=== PATIENT | male | born 1970 | race Caucasian/White ===

== ENCOUNTER 2018-05-24 19:34 | Observation (INO) | payer BC, SELFPAY ==
[2018-05-24 19:35] VITALS: BP 137/84; PULSE 83; RESP 17; TEMP 36.3; O2SAT 97; BMI 32.3
--- NOTE | 2018-05-24 19:40 | EKG12_ITS ---
Test Reason : CP Blood Pressure : / mmHG Vent. Rate : 078 BPM Atrial Rate : 078 BPM P-R Int : 200 ms QRS Dur : 078 ms QT Int : 372 ms P-R-T Axes : 047 050 029 degrees QTc Int : 424 ms Normal sinus rhythm Normal ECG Confirmed by STAN FREGOSO, ELI ([id number]), editor school photograph FEI ANGEL ([id number]) on 05/29/2018 2:52:35 PM Referred By: EVELIA Confirmed By:ELI PIERCE MD
--- NOTE | 2018-05-24 19:40 | RAD_ITS ---
STUDY: X-RAY CHEST REASON FOR EXAM: Male, 47 years old. Chest pain. TECHNIQUE: Single AP portable view of the chest. COMPARISON: None. FINDINGS: The lungs are clear and expanded. There is no demonstrated pleural abnormality. Normal size heart. Normal mediastinum and godwin. Normal visualized pulmonary arteries. Normal visualized aortic arch and descending thoracic aorta. The thoracic spine is obscured by the mediastinum. Normal visualized ribs, clavicles, and shoulders. There is no demonstrated abnormality of the visualized soft tissue structures of the upper abdomen. RAD/Chest 1 View (Portable) IMPRESSION: No acute cardiopulmonary disease. Electronically Signed: Mo Mancilla DO at 20:01 EDT Tel [phone], Service support ,
--- NOTE | 2018-05-24 19:44 | NURSING ---
NO OLD EKG
[2018-05-24 19:53] VITALS: PULSE 89; RESP 20; O2SAT 96
[2018-05-24 19:53] LABS: Absolute Lymphocyte Count 2.17 X10^3/ul (0.83-4.51); Absolute Neutrophil Count 6.6 X10^3/uL (2.0-7.7); Basophil# 0.02 X10^3/uL; Basophil% 0.2 % (0-1); Eosinophil# 0.07 X10^3/uL; Eosinophils% 0.7 % (0-5); Hematocrit 42.7 % (40-54); Hemoglobin 14.5 g/dl (13.0-16.5); Lymphocyte # 2.17 X10^3/ul (4.0); Lymphocyte % 22.2 % (19-41); Mean Corpuscular Hgb 33.2 pg (27.0-32.0); Mean Corpuscular Volume 97.7 fL (80-94); Mean Platelet Vol. 9.3 fl (6.2-12.0); Monocyte# 0.96 X10^3/uL; Monocyte% 9.8 % (0-10); Neutrophil # 6.55 X10^3/uL (2.7-7.7); Platelet Count 200 K/mm3 (150-450); RBC Distribution Width CV 12.7 % (11.6-14.6); RBC Distribution Width SD 45.6 fl (35.1-43.9); Red Blood Count 4.37 M/mm3 (4.6-6.2); White Blood Count 9.8 K/mm3 (4.4-11.0)
[2018-05-24 19:58] LABS: POSITIVE COUNT NO; POSITIVE DIFFERENTIAL NO; POSITIVE MORPHOLOGY NO
--- NOTE | 2018-05-24 19:59 | ED.VISSUMM ---
- ER Visit Summary Date of Service: 05/24/18 Chief Complaint: [] Chest pressure diaphoresis left arm pain since 10 AM today History of Present Illness: The patient is a 47 M [] is really in his past medical history reports that today began having chest pressure diaphoresis and left arm discomfort symptoms persisted he spoke with his and he came into the emergency department he has no history of GA PE or DVT he is generally healthy on no meds no past history no family history of CAD GA PE or DVT resting comfortably now asymptomatic Physical Examination: [] Rest unremarkable lungs are clear heart tones are normal abdomen soft full range of motion of the upper lower extremities pulses are symmetric his left arm exams unremarkable Test Results: [] Emergency Department Course and Treatment: [] EKG shows a sinus rhythm no injury pattern The patient's EKG labs x-rays other studies are all generally unremarkable please review the do those. Given his age the chest pain diaphoresis the left arm discomfort I have asked hospitalist to admit him for further management and further evaluation and they agree patient also agrees Treatment Plan: [] Disposition: [] Stable admit Impression: [] Chest pain with left arm discomfort evaluate for angina new onset This note was generated with [employer] dictation software. It may contain incorrect words, spelling, and punctuation that were not noted in review of the chart prior to signing ED Disposition - Plan for ED Patient: Chief Complaint: Chest Pain
[2018-05-24 20:08] LABS: Anion Gap 9 (5-15); BUN 17 mg/dL (7-18); BUN/Creat Ratio 15.6 RATIO (10-20); Calcium,Total 8.7 mg/dL (8.5-10.1); Chloride 106 mmol/L (98-107); Creatinine, Serum 1.09 mg/dL (0.70-1.30); EST Glomerular Filtration Rate 77 mL/min (>60); Est Glom Filt Rate - Afr Amer 93 mL/min (>60); Estimated Creatinine Clearance 87.44 ml/min; Glucose 90 mg/dL (74-106); Potassium 4.2 mmol/L (3.5-5.1); Sodium Level 140 mmol/L (136-145)
[2018-05-24] MEDS: Aspirin 325 MG Tablet PO (20:10)
[2018-05-24 21:59] VITALS: BP 141/80; PULSE 79; RESP 15; O2SAT 96
--- NOTE | 2018-05-24 22:29 | NURSING ---
Called ED business development analyst, Ryan at this time to confirm Pt okay to come to PCU.
--- NOTE | 2018-05-24 22:36 | HP.PCM_ITS ---
Problem List (1) Chest pain Status: Acute History of Present Illness Date of Admission: 05/24/18 Chief Complaint: chest pain ?4-5 days. The patient is a 47 year old previously healthy male who presented because of 4- 5 days of chest pain. His chest pain radiates to the back of his left arm and onto his left armpit. He reports that he chest pain went away and came back a day before his presentation. He describes his chest pain as a feeling of pressure. He reports diaphoresis but he is unsure whether it is the whether that causes him his diaphoresis or it is his chest pain. However the ED doctor found him diaphoretic. He reports that he has recently been taking care of twins and his who is using crutches so he may be exerting himself. 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 He did vomit about a week ago. She smokes about 2 cigarettes in a year. Past Medical History Allergies No Known Allergies Allergy (Verified 05/24/18 19:37) Home Medications: Ambulatory Orders Medication Instructions Recorded Venlafaxine HCl [Effexor] 75 mg PO DAILY 05/24/18 Lives: Spouse/ Significant Other Smoking Status: Never smoker Alcohol: None Drugs: None Review of Systems Constitutional: Denies: Anorexia, Malaise Eyes: Denies: Blurred vision, Pain HEENT: Denies: Head Aches, Sinus Congestion, Sinus Drainage Cardiovascular: Reports: Chest Pain Respiratory: Denies: Cough, Shortness of breath at rest, Sputum production Gastrointestinal: Denies: Abdominal Pain, Nausea, Vomiting Genitourinary: Denies: Dysuria Musculoskeletal: Reports: Arm Pain - Left arm pain and left armpit pain. Skin: Denies: Rash, Wounds Neurological: Denies: Numbness, Tingling, Focal weakness Psychiatric: Denies: Anxiety, Depression, Homicidal Ideations, Suicidal Ideations Hematologic/ Lymphatic: Denies: Easy Bruising, Easy Bleeding VTE Information - Inpt Only VTE Present on Admission: No VTE Mechan Device Prophylaxis: None VTE Pharm Prophylaxis ordered?: No Reason prophylaxis not ordered:: Medical Contraindication Patient Problems: Active and Suspected Problems Chest pain (Acute) - Physical Exam General: Alert, Oriented x3, Cooperative HEENT: Atraumatic, PERRLA, EOMI, Normocephalic Neck: Supple, No JVD, Negative Carotid Bruits Lungs: Clear to auscultation, Normal air movement Cardiovascular: Regular rate, No murmurs Abdomen: Bowel Sounds Present, Soft, Non Tender Extremities: No edema, Capillary Refill Less than 3 Seconds Skin: No rashes, No breakdown Musculoskeletal: No Tenderness to Palpation of Joints or Extremities Lymphatic: No Cervical, Supraclavicular, or Inguinal Adenopathy Neurological: Cranial nerves II-XII grossly intact Vital Signs Temp Pulse Resp BP Pulse Ox 97.3 F L 79 15 141/80 H 96 05/24/18 19:35 05/24/18 21:59 05/24/18 21:59 05/24/18 21:59 05/24/18 21:59 Oxygen Delivery Method Room Air Weight: 102.3 kg Body Mass Index (BMI) 32.3 Laboratory Tests Past 24 Hrs 05/24/18 05/24/18 19:45 19:45 WBC 9.8 RBC 4.37 L Hgb 14.5 Hct 42.7 MCV 97.7 H MCH 33.2 H MCHC 34.0 RDW 12.7 RDW Differential 45.6 H Plt Count 200 MPV 9.3 Immature Gran % (Auto) 0.100 Neut % (Auto) 67.0 Lymph % (Auto) 22.2 Curry % (Auto) 9.8 Eos % (Auto) 0.7 Baso % (Auto) 0.2 Absolute Neuts (auto) 6.6 Absolute Lymphs (auto) 2.17 Total Counted Not Reportable Sodium 140 Potassium 4.2 Chloride 106 Carbon Dioxide 25.0 Anion Gap 9 BUN 17 Creatinine 1.09 Estim Creat Clear Calc 87.44 Est GFR (MDRD) Af Amer 93 Est GFR (MDRD) Non-Af 77 BUN/Creatinine Ratio 15.6 Glucose 90 Calcium 8.7 Troponin I 0.024 Assessment/Plan All Active Problems Chest pain (Acute) This is a 47-year-old male with unremarkable medical history who presents with chest pain ongoing for about 4-5 days. Chest pain Differential diagnosis for his chest pain includes cardiac origin of chest pain , musculoskeletal pain or GERD. Status post aspirin 325 mg at emergency department Aspirin 81 mg continued Lipitor ordered Fasting lipids ordered Serial troponin Stress test in a.m. Will keep n.p.o. DVT prophylaxis Subcutaneous heparin. Continue home Effexor. This note was prepared with speech recognition software and may be prone to errors in sec reporting consultant.
[2018-05-24 23:03] VITALS: BP 150/94; PULSE 69; RESP 19; O2SAT 95
--- NOTE | 2018-05-24 23:33 | EKG12_ITS ---
Test Reason : CP ADMIT Blood Pressure : / mmHG Vent. Rate : 071 BPM Atrial Rate : 071 BPM P-R Int : 208 ms QRS Dur : 090 ms QT Int : 392 ms P-R-T Axes : 041 046 017 degrees QTc Int : 425 ms Normal sinus rhythm with sinus arrhythmia Poor R wave progression Confirmed by STAN FREGOSO, ELI ([id number]), scientific publications editor FEI ANGEL ([id number]) on 05/29/2018 3:28:56 PM Referred By: DR DIAZ Confirmed By:ELI PIERCE MD
[2018-05-24 23:40] VITALS: BMI 32.1; BMI 32.2
[2018-05-24 23:45] VITALS: BP 133/90; PULSE 75; RESP 18; TEMP 36.8; O2SAT 95
[2018-05-24 23:57] VITALS: PULSE 66
[2018-05-25] VITALS (7 sets, daily range): BP systolic 129–149; BP diastolic 81–95; PULSE 58–76; RESP 18; TEMP 36.6–37; O2SAT 95–98
[2018-05-25 05:34] LABS: Absolute Lymphocyte Count 2.61 X10^3/ul (0.83-4.51); Basophil# 0.02 X10^3/uL; Basophil% 0.2 % (0-1); Eosinophil# 0.11 X10^3/uL; Eosinophils% 1.3 % (0-5); Hematocrit 42.6 % (40-54); Hemoglobin 14.3 g/dl (13.0-16.5); Lymphocyte # 2.61 X10^3/ul (4.0); Lymphocyte % 30.3 % (19-41); Mean Corp Hgb Conc 33.6 g/gl (32-36); Mean Corpuscular Hgb 33.3 pg (27.0-32.0); Mean Corpuscular Volume 99.3 fL (80-94); Mean Platelet Vol. 9.4 fl (6.2-12.0); Monocyte# 0.87 X10^3/uL; Monocyte% 10.1 % (0-10); Neutrophil # 4.99 X10^3/uL (2.7-7.7); Platelet Count 194 K/mm3 (150-450); RBC Distribution Width CV 12.7 % (11.6-14.6); RBC Distribution Width SD 45.4 fl (35.1-43.9); Red Blood Count 4.29 M/mm3 (4.6-6.2); White Blood Count 8.6 K/mm3 (4.4-11.0)
[2018-05-25] MEDS: Aspirin E.C. 81 MG Tablet PO (05:35)
[2018-05-25 05:54] LABS: International Normalized Ratio 0.9; Prothrombin Time (Protime)PT. 12.5 SECONDS (11.7-14.9)
[2018-05-25 05:55] LABS: Partial Thromboplast Time 25.8 Seconds (24.1-36.2)
[2018-05-25 06:09] LABS: Anion Gap 6 (5-15); BUN 17 mg/dL (7-18); BUN/Creat Ratio 17.5 RATIO (10-20); Calcium,Total 9.1 mg/dL (8.5-10.1); Chloride 106 mmol/L (98-107); Cholesterol 211 mg/dL (200); Creatinine, Serum 0.97 mg/dL (0.70-1.30); EST Glomerular Filtration Rate 88 mL/min (>60); Est Glom Filt Rate - Afr Amer 107 mL/min (>60); Estimated Creatinine Clearance 98.25 ml/min; Glucose 95 mg/dL (74-106); High Density Lipoprotein 61 mg/dL; Potassium 4.2 mmol/L (3.5-5.1); Sodium Level 141 mmol/L (136-145); Triglycerides 110 mg/dL; Very Low Density Lipoprotein 22 mg/dL (5-40)
[2018-05-25 06:10] LABS: POSITIVE COUNT NO; POSITIVE DIFFERENTIAL NO; POSITIVE MORPHOLOGY NO
[2018-05-25] MEDS: Venlafaxine XR 75 MG Capsule PO (09:06)
--- NOTE | 2018-05-25 09:51 | STRESSREP ---
Stress Test Report Date: 05/24/2018 Procedure: Exercise tolerance test/imaging study Indications: Chest pain Consent: Per the patient Procedure: The patient exercised on a Garrett protocol for 13 minutes completing Stage IV and 1 minute of Stage V achieving a peak heart rate of 166 bpm (95 % predicted maximal heart rate) with a peak blood pressure 172/84 mmHg and a peak MET capacity of 15 METs. The baseline ECG demonstrated normal sinus rhythm. The peak exercise ECG demonstrated no obvious ECG changes. There were no cardiac dysrhythmias pretest, during exercise, or recovery. The functional capacity was considered excellent. There was no complaint of chest discomfort during exercise or recovery. The examination was discontinued secondary to dyspnea. Impression: 1. Technically adequate (percent predicted maximal heart rate greater than 85%) exercise tolerance test 2. Peak exercise ECG with no obvious ECG changes 3. There were no cardiac dysrhythmias pretest, during exercise, or recovery. 4. Nuclear images pending Myocardial perfusion imaging study: Technique: The patient was injected with 14.5 mCi of technetium 99m Cardiolite and subsequently rest SPECT Cardiolite nuclear imaging was obtained in the horizontal long, vertical long, and short axis views. The patient exercised on a Garrett protocol for 13 minutes completing Stage IV and 1 minute of Stage V achieving a peak heart rate of 166 bpm (95 % predicted maximal heart rate) with a peak blood pressure 172/84 mmHg and a peak MET capacity of 15 METs. The patient was injected with 44.1 mCi of technetium 99m Cardiolite and subsequently stress SPECT Cardiolite nuclear imaging was obtained in the horizontal long, vertical long, and short axis views. A gated Cardiolite study at peak stress was obtained. Interpretation: Rest and stress SPECT Cardiolite nuclear imaging status post realignment and normalization demonstrates the appearance of relative uniform tracer uptake and myocardial perfusion appearing within normal limits. There is end systolic thickening and brightening. The gated Cardiolite study demonstrates myocardial thickening and inward wall motion. The reported LVEF is 67 %. Impression: 1. Rest and stress SPECT Cardiolite nuclear imaging demonstrate relative uniform tracer uptake and myocardial perfusion appearing within normal limits. 2. The gated Cardiolite study reports an LVEF of 67 %. This note was generated with [employer] software. It may contain incorrect words, spelling, and punctuation that were not noted in checking the note before signing.
--- NOTE | 2018-05-25 09:59 | STRESSREP_ITS ---
Stress Test Report Date: 05/24/2018 Procedure: Exercise tolerance test/imaging study Indications: Chest pain Consent: Per the patient Procedure: The patient exercised on a Garrett protocol for 13 minutes completing Stage IV and 1 minute of Stage V achieving a peak heart rate of 166 bpm (95 % predicted maximal heart rate) with a peak blood pressure 172/84 mmHg and a peak MET capacity of 15 METs. The baseline ECG demonstrated normal sinus rhythm. The peak exercise ECG demonstrated no obvious ECG changes. There were no cardiac dysrhythmias pretest, during exercise, or recovery. The functional capacity was considered excellent. There was no complaint of chest discomfort during exercise or recovery. The examination was discontinued secondary to dyspnea. Impression: 1. Technically adequate (percent predicted maximal heart rate greater than 85% ) exercise tolerance test 2. Peak exercise ECG with no obvious ECG changes 3. There were no cardiac dysrhythmias pretest, during exercise, or recovery. 4. Nuclear images pending Myocardial perfusion imaging study: Technique: The patient was injected with 14.5 mCi of technetium 99m Cardiolite and subsequently rest SPECT Cardiolite nuclear imaging was obtained in the horizontal long, vertical long, and short axis views. The patient exercised on a Garrett protocol for 13 minutes completing Stage IV and 1 minute of Stage V achieving a peak heart rate of 166 bpm (95 % predicted maximal heart rate) with a peak blood pressure 172/84 mmHg and a peak MET capacity of 15 METs. The patient was injected with 44.1 mCi of technetium 99m Cardiolite and subsequently stress SPECT Cardiolite nuclear imaging was obtained in the horizontal long, vertical long, and short axis views. A gated Cardiolite study at peak stress was obtained. Interpretation: Rest and stress SPECT Cardiolite nuclear imaging status post realignment and normalization demonstrates the appearance of relative uniform tracer uptake and myocardial perfusion appearing within normal limits. There is end systolic thickening and brightening. The gated Cardiolite study demonstrates myocardial thickening and inward wall motion. The reported LVEF is 67 %. Impression: 1. Rest and stress SPECT Cardiolite nuclear imaging demonstrate relative uniform tracer uptake and myocardial perfusion appearing within normal limits. 2. The gated Cardiolite study reports an LVEF of 67 %. This note was generated with [employer] software. It may contain incorrect words, spelling, and punctuation that were not noted in checking the note before signing.
--- NOTE | 2018-05-25 10:58 | DCINST_ITS ---
- Discharge Diagnoses Current Active Problems: Current Active and Chronic Problems Chest pain (Acute) You will use the following diet at home:: No restrictions Your food should be the consistency of: Regular Your liquids should be the consistency of: Regular/Thin Discharge Activity: Return to Normal Activity Weight Bearing Status: Full weight bearing Allergies/Adverse Reactions: Allergies No Known Allergies Allergy (Verified 05/24/18 19:37) Medications to take at Discharge Venlafaxine HCl [Effexor] 75 mg PO DAILY 05/24/18 Primary Care Physician: Daren Hi MD [Primary Care Provider] - Please follow up with your Primary Care Physician in: today Test Results: Test results from this visit will be discussed in further detail at your follow- up appointment, if applicable.
--- NOTE | 2018-05-28 09:59 | DS.PCM_ITS ---
Discharge Date and Diagnosis Date of Admission: 05/24/18 Date of Discharge: 05/25/18 - Primary Discharge Diagnosis #1 musculoskeletal chest pain Hospital Course and Treatment Operations: None Procedures: Nuclear stress test Summary of Care Provided: The patient is a 47 year old M room at [facility] with chief complaint of chest pain 4-5 days duration. Workup in the emergency room showed his troponins to be unremarkable, EKG showed normal sinus rhythm without evidence of ischemic changes, patient's chest x-ray was unremarkable. Patient was placed in observation status on PCU, enzymes were cycled and they remain normal, patient underwent a nuclear stress test which was negative for reversible ischemia. On 05/25/18, patient was seen and examined and felt to be in stable condition for discharge home Discharge Activity: Return to Normal Activity Weight Bearing Status: Full weight bearing Home Medications: Medications to take at Discharge Venlafaxine HCl [Effexor] 75 mg PO DAILY 05/24/18 Primary Care Physician: Daren Hi MD [Primary Care Provider] - Please follow up with your Primary Care Physician in: today Please Follow Up With: nathan Disposition: Home Minutes spent on discharge:: 25 Patient Condition:: Stable Medical Necessity - Tobacco Use Smoking Status: Never smoker Meaningful Use Info Meaningful Use Diagnoses (Choose all that apply): None applicable Code Visit OBSV E&M: 48506 Observation care discharge
== END 2018-05-25 10:58 | disposition home or self-care (01) ==
LOC: ED 20:04 → PCU 23:07
PROVIDERS: Admitting Provider Hospitalist; Emergency Provider Emergency Medicine; Family Provider Family Medicine; PCP Family Medicine; Visit Provider Internal Medicine
DX: R07.89 Other chest pain (principal); M79.602 Pain in left arm; F17.210 Nicotine dependence, cigarettes, uncomplicated
CPT/HCPCS: 36415; 71045; 78452; 80048; 80061; 84484; 85025; 85610; 85730; 93005; 93017; 99218; 99284; A9500; A4216; G0378

== ENCOUNTER → 2020-09-04 10:20 | Outpatient (CLI) | payer BC, SELFPAY | PROVIDERS: PCP Family Medicine; Referring Provider Family Medicine; Visit Provider Family Medicine | DX: Z01.812 Encounter for preprocedural laboratory examination (principal); Z20.828 Contact with and (suspected) exposure to other viral communicable diseases | CPT/HCPCS: 87635; C9803; U0003 ==

== ENCOUNTER → 2022-07-22 | Outpatient (CLI) | payer BC, SELFPAY ==
[2022-07-22 12:44] LABS: ALB/GLOB Ratio 1.1 RATIO (0.9-2.4); AST(SGOT) 47 U/L (15-37); Alanine Aminotransfer ALT/SGPT 45 U/L (16-61); Albumin, Serum 3.6 g/dL (3.2-5.0); Alkaline Phosphatase 60 U/L (45-117); Anion Gap 6 (5-15); BUN 14 mg/dL (7-18); BUN/Creat Ratio 12.2 RATIO (10-20); Calcium,Total 9.1 mg/dL (8.5-10.1); Chloride 109 mmol/L (98-107); Cholesterol 151 mg/dL (200); Creatinine, Serum 1.15 mg/dL (0.70-1.30); EST Glomerular Filtration Rate 71 mL/min (>60); Est Glom Filt Rate - Afr Amer 86 mL/min (>60); Globulin 3.4 g/dL (2.2-4.2); Glucose 101 mg/dL (74-106); High Density Lipoprotein 49 mg/dL; PSA,Total - Annual Screen 1.46 ng/mL (0.00-4.00); Potassium 4.3 mmol/L (3.5-5.1); Sodium Level 143 mmol/L (136-145); Triglycerides 105 mg/dL; Very Low Density Lipoprotein 21 mg/dL (5-40)
[2022-07-22 13:03] LABS: Microalbumin,Random Urine 8.1 mg/L (NO RANGE EST.)
[2022-08-03 00:07] LABS: Testosterone, % Free 4.09 % (1.50-4.20); Testosterone, Free 38.24 ng/dL (5.00-21.00)
[2022-08-03 16:38] LABS: Testosterone, Total 935 ng/dL (264-916)
== END | disposition home or self-care (01) ==
LOC: BIMLAB 08:49
PROVIDERS: PCP Nurse Practitioner Family; Referring Provider Nurse Practitioner Family; Visit Provider Nurse Practitioner Family
DX: E78.5 Hyperlipidemia, unspecified (principal); I10 Essential (primary) hypertension; F41.1 Generalized anxiety disorder; E29.1 Testicular hypofunction; Z12.5 Encounter for screening for malignant neoplasm of prostate; B00.9 Herpesviral infection, unspecified
CPT/HCPCS: 36415; 80053; 80061; 82043; 84153; 84270; 84402; 84403; G0103

== ENCOUNTER 2022-11-25 07:23 | Day surgery (SDC) | payer BC, SELFPAY ==
[2022-11-25 07:48] VITALS: BP 127/87; PULSE 72; RESP 18; TEMP 37; O2SAT 100; BMI 34.1
[2022-11-25] MEDS: Lactated Ringers 1,000 ML 15 ML IV (07:48)
--- NOTE | 2022-11-25 08:25 | HP.PCM_ITS ---
HPI - General HPI Narrative MARY CARMEN TAYLOR, is a 52 M who presents for screening colonoscopy. Patient has never had a scope before. Patient denies any abdominal pain or blood in the stool. He has no family history of colon cancer. No blood thinners. PFSH Medical History Acute pharyngitis, unspecified Alcohol use Cardiology follow-up encounter CPAP (continuous positive airway pressure) dependence Dilated aortic root CATIE (generalized anxiety disorder) High cholesterol History of echocardiogram History of stress test History of varicocele HTN (hypertension) Non-smoker Home Medications atorvastatin 20 mg tablet 20 mg PO DAILY 09/07/22 [History Last Taken Unknown] metoprolol tartrate 25 mg tablet 25 mg PO DAILY 09/07/22 [History Last Taken 11/24/22 20:00] testosterone cypionate 200 mg/mL intramuscular oil 200 mg IM Q4W 09/07/22 [ History Last Taken Unknown] venlafaxine 150 mg capsule,extended release 24 hr 150 mg PO DAILY 09/07/22 [History Last Taken 11/25/22] Allergy/AdvReac Type Severity Reaction Status Date / Time No Known Allergies Allergy Verified 11/25/22 07:47 Surgical History History of rhinoplasty History of shoulder surgery History of tonsillectomy and adenoidectomy Social History Smoking Status: Never smoker Past Medical/Surgical History Planned Operation Planned Operative Procedure/s: CSCOPE OA Previous Hospitalizations/Surgeries HX Hospitalizations: No Any Problems With Anesthesia: No You/Your Family Experience Fever (Hyperthermia) With Anes: No Cholinesterase deficiency: No Cardiovascular Hx Chest Pain within Last 2 months: No Hx of Irregular Heartbeat and/or Afib: No Hx Heart Attack: No Hx Hypertension: Yes (CONTROLLED WITH MED) Hx Cardiac Surgery/Stents/Etc.: No Hx Pain in Legs when Walking/Leg Cramps: No Respiratory Hx Chronic Obstructive Pulmonary Disease (COPD): No Hx Emphysema: No Hx Sleep Apnea: Yes CPAP: Yes BIPAP: No Hx Respiratory Tract Infection/Cold (presently): No Result (for STOP score): Positive Hx Smoking: No Smoking Status: Never smoker Gastrointestinal Hx Gastrointestinal Bleed: No Hx Ulcer: No Hx Unplanned Weight Loss of 20#: No Neurological Hx Seizures: No Hx Multiple Sclerosis: No Hx Parkinson's Disease: No Does patient have nerve stimulator: No Blood Disorder Hx Hepatitis: No Hx Cirrhosis: No Hx Anemia: No Hx Blood Disorders: No Reproduction : No Genitourinary Hx Renal Disease: No Hx Dialysis: No Musculoskeletal Hx Arthritis: Yes Hx Rheumatoid Arthritis: No Endocrine Hx Diabetes: No Thyroid Disease: No Psycho/Social Hx Substance Use: No Hx Alcohol Use: Yes (social) Hx Anxiety: Yes Hx Depression: No Hx Dementia: No Miscellaneous Hx Cancer: No Recent Exposure to Contagious Disease: No Allergies No Known Allergies Allergy (Verified 11/25/22 07:47) Discharge Is Pt Admitted From a [facility], or a [facility]: No After D/C, Where Do you Plan to Go: Return Home Vital Signs Vital Signs Vital Signs: 11/25/22 07:48 11/25/22 07:48 Temperature 98.6 F Temperature Source Temporal Pulse Rate 72 Respiratory Rate 18 Respiratory Pattern Normal Blood Pressure 127/87 H Blood Pressure Mean 100 Blood Pressure Source Monitor Blood Pressure Position Semi-Fowlers Blood Pressure Location Right Arm Pulse Ox 100 Oxygen Delivery Method Room Air Weight Weight: 238 lb Body Mass Index (BMI) 34.1 Physical Exam Const alert and oriented x3 HEENT normocephalic Eyes PERRL Resp normal respiratory effort and normal air movement Cardio regular rate and regular rhythm GI soft to palpation, non-tender and non-distended Extremity normal to inspection Assessment & Plan Assessment/Plan (1) Encounter for screening for malignant neoplasm of colon: PLAN: I explained endoscopy in detail to the patient. I explained the risks including but not limited to stroke or heart attack with anesthesia, perforation of the GI tract, bleeding, infection. I explained that any of these could necessitate further emergency surgery. The patient understands and all questions were answered sufficiently. The patient wishes to proceed with procedure. Saman Frost MD Pager: [facility] [address] [place] [address], [address] [place] [address] Office: Surgery Risks - Colonoscopy Risks Include but are not Limited To: Risks include but are not limited to: Bleeding, perforation requiring further surgery, inability to complete colonoscopy requiring barium enema.
[2022-11-25 08:47] VITALS: BP 127/87; BP 128/80; PULSE 74; RESP 14; TEMP 36.8; O2SAT 94
--- NOTE | 2022-11-25 08:47 | OP.COLON_ITS ---
Patient Name: John Clark Procedure Date: 11/25/2022 8:17 AM Date of : 1970 Age: 52 Procedure: Colonoscopy Indications: Screening for colorectal malignant neoplasm Providers: Saman Frost MD Medicines: Monitored Anesthesia Care Patient Profile: This is a 52 year old male. Refer to note in patient chart for documentation of history and physical. Last Colonoscopy: none. The patient's first colonoscopy is today. Complications: No immediate complications. Procedure: Pre-Anesthesia Assessment: - Prior to the procedure, a History and Physical was performed, and patient medications and allergies were reviewed. The patient's tolerance of previous anesthesia was also reviewed. The risks and benefits of the procedure and the sedation options and risks were discussed with the patient. All questions were answered, and informed consent was obtained. Prior Anticoagulants: The patient has taken no previous anticoagulant or antiplatelet agents. After reviewing the risks and benefits, the patient was deemed in satisfactory condition to undergo the procedure. After I obtained informed consent, the scope was passed under direct vision. Throughout the procedure, the patient's blood pressure, pulse, and oxygen saturations were monitored continuously. The colonoscope was introduced through the anus and advanced to the cecum, identified by appendiceal orifice and ileocecal valve. The colonoscopy was performed without difficulty. The patient tolerated the procedure well. The quality of the bowel preparation was good. Scope In: 8:32:45 AM Scope Withdrawal Time 0 hours 6 minutes 50 seconds Scope Out: 8:44:22 AM Total Procedure Duration Time 0 hours 11 minutes 37 seconds Findings: The entire examined colon appeared normal on direct and retroflexion views. Impression: - The entire examined colon is normal on direct and retroflexion views. - No specimens collected. Recommendation: - Discharge patient to home. - Resume previous diet. - Continue present medications. - Repeat colonoscopy in 10 years for screening purposes. Procedure Code(s): --- Professional --- 52902, Colonoscopy, flexible; diagnostic, including collection of specimen(s) by brushing or washing, when performed (separate procedure) Diagnosis Code(s): --- Professional --- Z12.11, Encounter for screening for malignant neoplasm of colon CPT copyright 2017 [employer]. All rights reserved. The codes documented in this report are preliminary and upon taker off drying kiln review may be revised to meet current compliance requirements. Saman Frost MD 11/25/2022 8:46:19 AM This report has been signed electronically. Number of Addenda: 0 Note Initiated On: 11/25/2022 8:17 AM
--- NOTE | 2022-11-25 08:47 | OP.CCLET_ITS ---
11/25/2022 Aguilar Valero Re : Colonoscopy procedure for John Clark Dear Marylu This procedure was performed on Friday, November 25, 2022. My impressions and recommendations are as follows: Impressions : - The entire examined colon is normal on direct and retroflexion views. - No specimens collected. Recommendations : - Discharge patient to home. - Resume previous diet. - Continue present medications. - Repeat colonoscopy in 10 years for screening purposes. My findings are described in the full procedure note, which is enclosed. If I can be of further assistance, please feel free to contact me at Doctor phone number(s): , Work: . Sincerely, Saman Frost MD 11/25/2022 8:46:19 AM This report has been signed electronically.
[2022-11-25 08:50] VITALS: BP 111/88; BP 127/87; PULSE 77; RESP 16; O2SAT 92
[2022-11-25 08:55] VITALS: BP 127/87; BP 97/65; PULSE 66; RESP 16; O2SAT 93
[2022-11-25 08:58] VITALS: BP 107/70; BP 127/87; PULSE 68; RESP 16; TEMP 36.8; O2SAT 94
[2022-11-25 09:35] VITALS: BP 127/87
== END 2022-11-25 10:11 | disposition home or self-care (01) ==
LOC: EN 07:26 → AC 07:26
PROVIDERS: PCP Nurse Practitioner Family; Referring Provider Nurse Practitioner Family; Visit Provider Surgery
PROC: 0DJD8ZZ Inspection of Lower Intestinal Tract, Via Natural or Artificial Opening Endoscopic (ICD-10-PCS; CPT 45378; principal; 2022-11-25 08:25)
DX: Z12.11 Encounter for screening for malignant neoplasm of colon (principal); F41.1 Generalized anxiety disorder; E78.00 Pure hypercholesterolemia, unspecified; I10 Essential (primary) hypertension
CPT/HCPCS: 45378; J7120; J2405

== ENCOUNTER → 2025-01-24 | Outpatient (CLI) | payer BC, SELFPAY ==
[2025-01-24 11:34] LABS: Hematocrit 46.4 % (40-54); Hemoglobin 16.1 g/dL (13.0-16.5); Mean Corp Hgb Conc 34.7 g/dL (32-36); Mean Corpuscular Hgb 33.3 pg (27.0-32.0); Mean Corpuscular Volume 95.9 fL (80-94); Mean Platelet Vol. 9.4 fl (6.2-12.0); Platelet Count 231 K/mm3 (150-450); RBC Distribution Width SD 46.5 fl (35.1-43.9); Red Blood Count 4.84 M/mm3 (4.6-6.2); White Blood Count 6.5 K/mm3 (4.4-11.0)
[2025-01-24 12:04] LABS: Hemoglobin A1c 5.3 % (<=5.6); Microalbumin,Random Urine < 12.0 mg/L (NO RANGE EST.); Microalbumin:Creatinine Ratio UNABLE TO CALCULATE mg/g CRE
[2025-01-24 13:18] LABS: ALB/GLOB Ratio 1.6 RATIO (0.9-2.4); AST(SGOT) 52 U/L (<=37); Alanine Aminotransfer ALT/SGPT 44 U/L (<=46); Albumin, Serum 4.6 g/dL (3.5-5.0); Alkaline Phosphatase 97 U/L (40-129); Anion Gap 14 (5-15); BUN 14 mg/dL (4-19); BUN/Creat Ratio 12.2 RATIO (10-20); Calcium,Total 9.8 mg/dL (7.6-11.0); Carbon Dioxide 19.8 mmol/L (21.0-32.0); Chloride 106 mmol/L (98-108); Creatinine, Serum 1.17 mg/dL (0.70-1.20); EST Glomerular Filtration Rate 75 (>60); Glucose 94 mg/dL (70-99); Potassium 4.5 mmol/L (3.3-5.1); Protein, Total 7.6 g/dL (5.9-8.4); Sodium Level 139 mmol/L (133-145)
[2025-01-24 13:25] LABS: Follicle Stimulating Hormone 0.9 mIU/mL; Luteinizing Hormone < 0.3 mIU/mL
== END | disposition home or self-care (01) ==
LOC: LAB 10:57
PROVIDERS: PCP Nurse Practitioner Family; Referring Provider Nurse Practitioner Family; Visit Provider Nurse Practitioner Family
DX: Z00.00 Encounter for general adult medical examination without abnormal findings (principal); E29.1 Testicular hypofunction; I10 Essential (primary) hypertension
CPT/HCPCS: 36415; 80053; 82043; 82570; 82670; 83001; 83002; 83036; 84146; 84153; 84270; 84402; 84403; 85027